=== PATIENT | female | born 1965 | race Two or more races ===

== ENCOUNTER 2022-02-04 19:25 | Emergency (ER) | payer SELFPAY | END 2022-02-04 20:22 | disposition left against medical advice (07) | LOC: JP.ED 19:25 | DX: F10.129 Alcohol abuse with intoxication, unspecified (principal); F17.210 Nicotine dependence, cigarettes, uncomplicated; Y90.8 Blood alcohol level of 240 mg/100 ml or more | CPT/HCPCS: 36415; 80048; 80307; 85027; 99284 ==